=== PATIENT | male | born 1995 ===

== ENCOUNTER 2018-10-15 09:33 | Outpatient (CLI) | payer OTHER | END 2018-10-15 09:41 | disposition home or self-care (01) | LOC: TOM 09:33 | DX: Q62.11 Congenital occlusion of ureteropelvic junction (principal) ==

== ENCOUNTER 2019-01-02 05:55 | Inpatient (IN) | payer OTHER ==
[~2019-01-02] VITALS: Ht 172.7 cm; Wt 81.6 kg
[2019-01-05] MEDS ORDERED: TRAM1TAB98 PO (18:43)
[2019-01-05] MEDS ORDERED: TAMS0.4C PO (18:43)
[2019-01-05] MEDS ORDERED: COLACE100 MG PO (18:44)
[2019-01-30] MEDS ORDERED: NITROFURANTOIN100 MG PO (09:06)
== END 2019-01-05 09:28 | disposition home or self-care (01) | DRG 661 ==
LOC: CIR.AMB 05:55 → O/R 17:12 → SURG 17:12
PROVIDERS: ADMIT Urology
PROC: 0T774DZ Dilation of Left Ureter with Intraluminal Device, Percutaneous Endoscopic Approach (ICD-10-PCS; 2019-01-02)
PROC: 0TQ44ZZ Repair Left Kidney Pelvis, Percutaneous Endoscopic Approach (ICD-10-PCS; principal; 2019-01-02 07:00)
DX: N13.0 Hydronephrosis with ureteropelvic junction obstruction (principal); N13.2 Hydronephrosis with renal and ureteral calculous obstruction

== ENCOUNTER 2019-01-05 18:35 | Emergency (ER) | payer OTHER ==
[~2019-01-05] VITALS: Ht 175.3 cm; Wt 81.6 kg
[2019-01-05] MEDS ORDERED: TAMS0.4C PO (18:43)
[2019-01-05] MEDS ORDERED: TRAM1TAB98 PO (18:43)
[2019-01-05] MEDS ORDERED: COLACE100 MG PO (18:44)
== END 2019-01-05 21:49 | disposition home or self-care (01) ==
LOC: ER 18:35
DX: G89.18 Other acute postprocedural pain (principal); G97.82 Other postprocedural complications and disorders of nervous system

== ENCOUNTER 2019-01-13 10:19 | Outpatient (CLI) | payer OTHER ==
[~2019-01-13 10:19] MED LIST: COLACE100 MG PO; TAMS0.4C PO; TRAM1TAB98 PO
== END 2019-01-13 10:30 | disposition home or self-care (01) ==
LOC: LAB 10:19
DX: N30.00 Acute cystitis without hematuria (principal)

== ENCOUNTER 2019-02-06 05:05 | Day surgery (SDC) | payer OTHER ==
[~2019-02-06 05:05] MED LIST changes: +NITROFURANTOIN100 MG PO
== END 2019-02-06 10:02 | disposition home or self-care (01) ==
LOC: CIR.AMB 05:05
DX: N13.0 Hydronephrosis with ureteropelvic junction obstruction (principal)